=== PATIENT | female | born 1975 | race Hispanic/Latino ===

== ENCOUNTER 2018-08-24 21:45 | Emergency (ER) | payer SELFPAY ==
[2018-08-24 22:29] VITALS: BP 104/66
== END 2018-08-25 04:20 | disposition left against medical advice (07) ==
LOC: ED 21:45
DX: K08.89 Other specified disorders of teeth and supporting structures (principal); Z53.21 Procedure and treatment not carried out due to patient leaving prior to being seen by health care provider